=== PATIENT | female | born 1975 | race Caucasian/White ===

== ENCOUNTER → 2018-08-30 | Outpatient (CLI) | payer MEDICARE, OTHER ==
--- NOTE | 2018-09-01 18:27 | MR ---
EXAMINATION TYPE: MR cervical spine wo con DATE OF EXAM: 08/30/2018 COMPARISON: Prior cervical spine MRI 03/05/2015 HISTORY: Neck pain, Headaches, Afshin arm pain and weakness TECHNIQUE: Multiplanar, multisequence images of the cervical spine were acquired. C2-C3: No evidence for degenerative disc disease. No disc bulge/herniation or protrusion. No Canal stenosis. Foramina are patent bilaterally. C3-C4: No evidence for degenerative disc disease. No disc bulge/herniation or protrusion. No Canal stenosis. Foram[place] are patent bilaterally. C4-C5: No evidence for degenerative disc disease. No disc bulge/herniation or protrusion. No Canal stenosis. Foram[place] are patent bilaterally. C5-C6: Minimal posterior disc bulge is present. Increased signal at the posterior aspect of the C5 ve rtebral body is stable and may represent a small hemangioma. No significant central stenosis or vicenta inal encroachment. Is mild loss of disc height and signal compatible disc desiccation and degenerativ e disc disease. C6-C7: No evidence for degenerative disc disease. No disc bulge/herniation or protrusion. No Canal stenosis. Foram[place] are patent bilaterally. C7-T1: No evidence for degenerative disc disease. No disc bulge/herniation or protrusion. No Canal stenosis. Foram[place] are patent bilaterally. Cervical segments are intact. There is normal alignment. Cervical spinal cord is of normal signal. Craniovertebral junction relationships are within normal limits. IMPRESSION: The exam is stable and unremarkable, only minimal cervical spine degenerative disc change.
== END | disposition home or self-care (01) ==
LOC: RADMRIMAIN 19:00
PROVIDERS: ATTEND Internal Medicine
DX: M54.2 Cervicalgia (principal)
CPT/HCPCS: 72141

== ENCOUNTER → 2021-01-20 | Outpatient (CLI) | payer MEDICARE ==
[2021-01-20 21:26] LABS: ALT 22 U/L (8-44); AST 23 U/L (13-35); Alkaline Phosphatase 42 U/L (41-126); Bilirubin, Conjugated <0.20 mg/dL (0.20-0.40); Chol/HDL Ratio 3.59; Cholesterol 201 mg/dL (0-200); Globulin 1.6 g/dL (1.6-3.3); LDL Cholesterol,Calculated 116.6 mg/dL (0.0-131.0); Total Bilirubin 0.2 mg/dL (0.3-1.2); Total Protein 6.4 g/dL (6.2-8.2)
== END | disposition home or self-care (01) ==
LOC: LABWHC1 07:55
PROVIDERS: ATTEND Nuclear Medicine Nuclear Cardiology
DX: E78.2 Mixed hyperlipidemia (principal); M35.9 Systemic involvement of connective tissue, unspecified
CPT/HCPCS: 36415; 80061; 80076